=== PATIENT | female | born 1960 | race Caucasian/White ===

== ENCOUNTER 2019-07-04 09:17 | Outpatient (CLI) | payer MEDICARE, OTHER | END 2019-07-04 23:59 | disposition home or self-care (01) | LOC: CFH 09:17 | PROVIDERS: ATTEND Family Medicine | DX: Z12.31 Encounter for screening mammogram for malignant neoplasm of breast (principal); N64.89 Other specified disorders of breast | CPT/HCPCS: 77063; 77067 ==

== ENCOUNTER 2021-01-21 09:33 | Outpatient (CLI) | payer OTHER | END 2021-01-21 23:59 | disposition home or self-care (01) | LOC: CFH 09:33 | PROVIDERS: ATTEND Physician Assistant | DX: Z12.31 Encounter for screening mammogram for malignant neoplasm of breast (principal); Z12.39 Encounter for other screening for malignant neoplasm of breast; M85.88 Other specified disorders of bone density and structure, other site; M81.0 Age-related osteoporosis without current pathological fracture | CPT/HCPCS: 76641; 77063; 77067; 77080 ==